=== PATIENT | male | born 2000 | race Caucasian/White ===

== ENCOUNTER 2018-04-10 04:50 | Emergency (ER) | payer SELFPAY ==
--- NOTE | 2018-04-10 06:15 | EDPHY ---
H & P Stated Complaint: found unresposive, ETOH Source: Patient, EMS Exam Limitations: Intoxication - Personal History Current Tetanus/Diphtheria Vaccine: Yes Current Tetanus Diphtheria and Acellular Pertussis (TDAP): Yes - Medical/Surgical History Hx Asthma: No Hx Chronic Respiratory Disease: No Hx Diabetes: No Hx Cardiac Disease: No Hx Renal Disease: No Hx Cirrhosis: No Hx Alcoholism: No Hx HIV/AIDS: No Hx Splenectomy or Spleen Trauma: No Other PMH: bipolar - Social History Smoking Status: Never smoked Time Seen by Provider: 04/10/18 04:56 HPI/ROS: CHIEF COMPLAINT: Alcohol intoxication HISTORY OF PRESENT ILLNESS: The patient is brought in by ambulance by paramedics. Patient was found by bystanders at a fraternity to be severely intoxicated and therefore they called EMS system. Patient denies any injuries , denies loss of consciousness, denies any recent trauma. Patient denies coingestion, patient denies suicidal or homicidal behavior. REVIEW OF SYSTEMS: 10 systems were reviewed and negative with the exception of the elements mentioned in the history of present illness. PAST MEDICAL HISTORY: None PAST SURGICAL HISTORY: None SOCIAL HISTORY: drinks alcohol occasionally PHYSICAL EXAM: General Appearance: Alert, well hydrated, appropriate, and non-toxic appearing. Head: Atraumatic without scalp tenderness or obvious injury Eyes: Pupils equal, round, reactive to light, no injection. Ears: Clear bilaterally, no perforation, normal landmarks Nose: Atraumatic, no rhinorrhea, clear. Throat: mucus membranes moist. Neck: Supple, non-tender, no lymphadenopathy. Respiratory: No retractions, no distress, no wheezes, and no accessory muscle use. Lungs are clear to auscultation bilaterally. Cardiovascular: Regular rate and rhythm, no murmurs, rubs, or gallops. Gastrointestinal: Abdomen is soft, non-tender, non-distended Musculoskeletal: Normal active ROM of all extremities, atraumatic. Neurological: Alert, appropriate, and interactive. Moves all extremities equally. Skin: No rashes, good turgor, no nodules on palpation. MEDICAL DECISION MAKING: I serially examined this patient since the patient's arrival here in the emergency department. The patient continues to become more and more sober with each examination. I serially questioned the patient and the patient's story given initially has not changed. The patient still denies any trauma, any head injury, and any illicit drug use. At this point, the patient is walking the department freely and is clinically sober. We're discharging the patient to the [facility] in stable condition. (Smitha Myers) Constitutional: Initial Vital Signs Temperature (C) 36.6 C 04/10/18 04:55 Heart Rate 78 04/10/18 04:55 Respiratory Rate 16 04/10/18 04:55 Blood Pressure 127/99 H 04/10/18 04:55 O2 Sat (%) 98 04/10/18 04:55 O2 Delivery Mode Room Air Allergies/Adverse Reactions: No Known Allergies Allergy (Unverified 04/10/18 04:55) Home Medications: Medication Instructions Recorded NK [No Known Home Meds] 04/10/18 Medical Decision Making ED Course/Re-evaluation: 7:45 a.m. the patient is awake and alert. He is able to ambulate. He denies any type of pain or injury. He is calling front pick him up. If the friend is unable to we will sent him to the [facility]. (Jaya Plata) Departure - Departure Disposition: Home, Routine, Self-Care Clinical Impression: Alcoholic intoxication Qualifiers: Complication of substance-induced condition: with delirium Qualified Code(s): F10.921 - Alcohol use, unspecified with intoxication delirium Condition: Good Instructions: Alcohol Intoxication (ED) Referrals: Bettina De La Torre MD [[facility] Primary Care Provider] - As per Instructions
[2018-04-10 08:08] VITALS: BP 120/80
== END 2018-04-10 08:08 ==
DX: F10.921 Alcohol use, unspecified with intoxication delirium (principal)